=== PATIENT | male | born 1970 | race Caucasian/White ===

== ENCOUNTER 2017-04-11 12:12 | Emergency (ER) | payer OTHER ==
[2017-04-11] MEDS ORDERED: ONDANSETRON 4 MG/2 ML VIAL IVP ONE (12:43)
[2017-04-11] MEDS ORDERED: HYDROmorphONE/DILAUDID 1 MG/ML INJ IVP ONE (12:43)
[2017-04-11] MEDS ORDERED: FAMOTIDINE 20 MG in NS 100 ML IV ONE (12:43)
[2017-04-11] MEDS ORDERED: NS 1,000 ML IV ONE ×2 (12:43)
[2017-04-11 12:50] LABS: PLATELET COUNT 282 10^3/uL (150-400)
--- NOTE | 2017-04-11 12:50 | EDPHY ---
H & P Time Seen by Provider: 04/11/17 12:20 HPI/ROS: HPI Abdominal pain, vomiting, diarrhea. 47-year-old male by private vehicle with his girlfriend. This patient reports that on he felt some crampy abdominal discomfort and had some watery diarrhea. He he felt better on Thursday. He reports that Thursday night he went out to a [place]. He had a couple beers and drink a shot of whiskey late at night. He reports that after drinking whiskey Thursday night he developed periumbilical abdominal pain followed by dry heaving. He reports that he has had persistent pain since that time. He reports he was trying to drink some fluid earlier this morning and started dry heaving. ROS: Constitutional: No fever, no chills. No weakness. Eyes: No discharge. No changes in vision. ENT: No sore throat. No nasal congestion or rhinorrhea. Respiratory: No cough. No shortness of breath. Cardiac: No chest pain, no palpitations. Gastrointestinal: As above. Genitourinary: No hematuria. No dysuria or increased frequency with urination. No testicular pain. Musculoskeletal: No back pain. No neck pain. No myalgias or arthralgias. Skin: No rashes. Neurological: No headache. No focal weakness or altered sensation. Past medical history: Orthopedic injuries. Social history: Nonsmoker. Drinks alcohol socially. Here with his girlfriend. Physical Exam: General Appearance: Alert, no distress. This patient is responding to questions appropriately and in full sentences. This patient appears well- hydrated and well-nourished. Eyes: Pupils equal and round no pallor or injection. No lid edema, erythema or injection. ENT, Mouth: Mucous membranes and lips are dry. The pharyngeal tissues are unremarkable. No edema or swelling. No asymmetry suggestive of abscess. No erythema or exudates. Respiratory: There are no retractions, lungs are clear to auscultation with good air movement bilaterally. Cardiovascular: Regular rate and rhythm. No murmur. Gastrointestinal: Abdomen is soft with mild to moderate periumbilical tenderness on palpation, no masses, bowel sounds normal. No focal tenderness at McBurney's point. No Casanova sign. Neurological: Motor sensory function is grossly intact. Cranial nerves are normal. Gait is normal. Skin: Warm and dry, no rashes. Musculoskeletal: Neck is supple and nontender. Extremities are symmetrical. All joints range without pain or impingement. Psychiatric: No agitation. No depression. Database: EKG: Imaging: CT scan of abdomen and pelvis with IV contrast: No findings to suggest appendicitis. Small bowel loop dilation suggestive of enteritis versus possible early small-bowel obstruction. Results were discussed with staff radiologist Dr. Jonny Bills. Procedures: Emergency department course: Vital signs reviewed. He is afebrile. Mildly hypertensive. Vital signs otherwise normal. Differential diagnosis includes food-borne illness, gastritis , viral gastroenteritis as well as appendicitis considering his periumbilical tenderness on palpation. He consents to CT imaging. IV was placed. He will be started on IV normal saline with 1-2 L to be given over the next 1-2 hours. He was initially given 4 mg of IV Zofran, 0.5 mg of IV hydromorphone and 20 mg of IV Pepcid. 2:40 p.m., patient re-evaluated. Resting comfortably at this time. He has had 2 L of IV normal saline. Vital signs reviewed and are normal. Repeat abdominal exam he is soft and nontender on palpation. Results of his CT scan and blood work discussed with him. 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 Given his presentation and lack of abdominal surgical history of feel that bowel obstruction is unlikely. He feels comfortable going home at this time. He is tolerating oral fluids. I will prescribe him Zofran. Follow-up was reviewed. Return to emergency department precautions discussed thoroughly with him and his girlfriend. He was also instructed not to drink alcohol. All of his questions were answered. He was discharged in good condition with his girlfriend who is driving. Differential Diagnosis: The differential diagnosis on this patient includes but is not limited to food borne illness, viral gastroenteritis. Appendicitis, other surgical etiology unlikely. This represents a partial list of diagnoses considered. These considerations are based on history, physical exam, past history, reassessment and diagnostic testing. Smoking Status: Never smoked Constitutional: Initial Vital Signs Temperature (C) 36.7 C 04/11/17 12:14 Heart Rate 88 04/11/17 12:14 Respiratory Rate 18 04/11/17 12:14 Blood Pressure 141/94 H 04/11/17 12:14 O2 Sat (%) 96 04/11/17 12:14 O2 Delivery Mode Room Air Allergies/Adverse Reactions: No Known Allergies Allergy (Unverified 04/11/17 12:18) Home Medications: Medication Instructions Recorded Albuterol Sulfate 10/31/10 Claritin 10/31/10 Qvar 80 (RX) 08/12/13 Ondansetron Odt [Zofran Odt 4 mg 4 mg PO Q4PRN PRN #14 tab 04/11/17 (*)] TESTOSTERONE 04/11/17 Medical Decision Making - Diagnostics Imaging Results: Imaging Impressions Abdomen CT 04/11/17 12:44 Impression: 1. Small bowel dilatation could reflect enteritis or early small bowel obstruction. Follow up is recommended. 2. No findings to support a clinical diagnosis of acute appendicitis. 3. See above report for additional findings. Results called and discussed with Dr. Carla Perez on April 11, 2017 at 1409 hours. - Data Points Laboratory Results: Laboratory Results 04/11/17 12:30 04/11/17 12:30 04/11/17 04/11/17 12:30 12:30 WBC 12.78 10^3/uL H 10^3/uL (3.80-9.50) RBC 5.43 10^6/uL 10^6/uL (4.40-6.38) Hgb 18.2 g/dL H g/dL (13.7-17.5) Hct 50.7 % % (40.0-51.0) MCV 93.4 fL fL (81.5-99.8) MCH 33.5 pg pg (27.9-34.1) MCHC 35.9 g/dL g/dL (32.4-36.7) RDW 12.9 % % (11.5-15.2) Plt Count 282 10^3/uL 10^3/uL (150-400) MPV 8.2 fL L fL (8.7-11.7) Neut % (Auto) 86.2 % H % (39.3-74.2) Lymph % (Auto) 7.4 % L % (15.0-45.0) [place] % (Auto) 5.7 % % (4.5-13.0) Eos % (Auto) 0.1 % L % (0.6-7.6) Baso % (Auto) 0.2 % L % (0.3-1.7) Nucleat RBC Rel Count 0.0 % % (0.0-0.2) Absolute Neuts (auto) 11.01 10^3/uL H 10^3/uL (1.70-6.50) Absolute Lymphs (auto) 0.95 10^3/uL L 10^3/uL (1.00-3.00) Absolute Monos (auto) 0.73 10^3/uL 10^3/uL (0.30-0.80) Absolute Eos (auto) 0.01 10^3/uL L 10^3/uL (0.03-0.40) Absolute Basos (auto) 0.03 10^3/uL 10^3/uL (0.02-0.10) Absolute Nucleated RBC 0.00 10^3/uL 10^3/uL (0-0.01) Immature Gran % 0.4 % % (0.0-1.1) Immature Gran # 0.05 10^3/uL 10^3/uL (0.00-0.10) Sodium 144 mEq/L mEq/L (134-144) Potassium 4.4 mEq/L mEq/L (3.5-5.2) Chloride 98 mEq/L mEq/L (97-110) Carbon Dioxide 25 mEq/l mEq/l (22-31) Anion Gap 21 mEq/L H mEq/L (8-16) BUN 16 mg/dL mg/dL (7-23) Creatinine 0.8 mg/dL mg/dL (0.7-1.3) Estimated GFR > 60 Glucose 105 mg/dL H mg/dL (70-100) Calcium 11.2 mg/dL H mg/dL (8.5-10.4) Phosphorus 3.4 mg/dL mg/dL (2.5-4.5) Total Bilirubin 2.4 mg/dL H mg/dL (0.1-1.4) Conjugated Bilirubin 0.3 mg/dL mg/dL (0.0-0.5) Unconjugated Bilirubin 2.1 mg/dL H mg/dL (0.0-1.1) AST 28 IU/L IU/L (17-59) ALT 52 IU/L IU/L (21-72) Alkaline Phosphatase 91 IU/L IU/L (38-126) Total Protein 8.8 g/dL H g/dL (6.3-8.2) Albumin 5.0 g/dL g/dL (3.5-5.0) Lipase 172 IU/L IU/L (23-300) Medications Given: Discontinued Medications Hydromorphone HCl (Dilaudid) 0.5 mg IVP EDNOW ONE Stop: 04/11/17 12:44 Last Admin: 04/11/17 12:58 Dose: 0.5 mg Sodium Chloride (Ns) 1,000 mls @ 0 mls/hr IV EDNOW ONE; Wide Open PRN Reason: Protocol Stop: 04/11/17 12:44 Last Admin: 04/11/17 12:15 Dose: 1,000 mls Sodium Chloride (Ns) 1,000 mls @ 0 mls/hr IV EDNOW ONE; Wide Open PRN Reason: Protocol Stop: 04/11/17 12:44 Last Admin: 04/11/17 13:42 Dose: 1,000 mls Famotidine 20 mg/ Sodium (Chloride) 102 mls @ 408 mls/hr IV EDNOW ONE Stop: 04/11/17 12:57 Last Admin: 04/11/17 13:00 Dose: 102 mls Ondansetron HCl (Zofran) 4 mg IVP EDNOW ONE Stop: 04/11/17 12:44 Last Admin: 04/11/17 12:56 Dose: 4 mg Departure - Departure Disposition: Home, Routine, Self-Care Clinical Impression: Vomiting, Diarrhea, Abdominal pain Condition: Good Instructions: Abdominal Pain (ED), Acute Nausea and Vomiting (ED) Additional Instructions: Read and follow provided instructions. Follow-up with your primary care physician on Thursday for re-evaluation as discussed. Take medication as prescribed for nausea. Keep well hydrated. Drink plenty of fluids. A good fluid to drink is Gatorade mixed with water in a 1-1 dilution. Advance her diet slowly and as tolerated. Return to the emergency department for worsening symptoms, worsening abdominal pain, vomiting and inability to keep fluids down despite medications, blood in your stool or other serious concerns. Referrals: NONE *PRIMARY CARE P,. [Unknown] - As per Instructions Prescriptions: Ondansetron Odt [Zofran Odt 4 mg (*)] 4 mg PO Q4PRN PRN #14 tab PRN Reason: For Nausea & Vomiting
[2017-04-11] MEDS ORDERED: IOPAMIDOL (ISOVUE-300) 100 ML BTL ONE (13:11)
[2017-04-11 14:32] VITALS: RESP 16
[2017-04-11 14:55] VITALS: BP 107/99; PULSE 78; TEMP 98.8; O2SAT 97
== END 2017-04-11 14:55 | disposition home or self-care (01) ==
LOC: CED 12:12
PROC: 3E0337Z Introduction of Electrolytic and Water Balance Substance into Peripheral Vein, Percutaneous Approach (ICD-10-PCS; principal; 2017-04-11)
DX: R11.10 Vomiting, unspecified (principal); R19.7 Diarrhea, unspecified; R10.33 Periumbilical pain; E86.9 Volume depletion, unspecified
CPT/HCPCS: 74177-PO; 80048-PO; 80076-PO; 83690-PO; 84100-PO; 85025-PO; 96374; J1170; J2405; Q9967